=== PATIENT | male | born 1980 | race African-American/Black ===

== ENCOUNTER 2017-11-30 15:21 | Emergency (ER) | payer SELFPAY | END 2017-11-30 17:45 | disposition home or self-care (01) | LOC: M ED 15:21 | DX: S00.83XA Contusion of other part of head, initial encounter (principal); Y04.0XXA Assault by unarmed brawl or fight, initial encounter; Y92.89 Other specified places as the place of occurrence of the external cause; Z72.0 Tobacco use | CPT/HCPCS: 70450 ==